=== PATIENT | male | born 1990 | race Caucasian/White ===

== ENCOUNTER 2018-05-08 18:49 | Emergency (ER) | payer OTHER ==
[~2018-05-08] VITALS: Ht 165.1 cm; Wt 105.2 kg
[2018-05-08 19:06] VITALS: Ht 165.1 cm; Wt 105.2 kg
[2018-05-08 20:36] VITALS: BP 125/78
== END 2018-05-08 20:36 | disposition home or self-care (01) ==
LOC: ED 18:49
DX: J03.90 Acute tonsillitis, unspecified (principal); J06.9 Acute upper respiratory infection, unspecified; H10.33 Unspecified acute conjunctivitis, bilateral

== ENCOUNTER → 2018-10-20 | Emergency (ER) | payer OTHER ==
[~2018-10-20] VITALS: Ht 160 cm; Wt 107.5 kg
[2018-10-20 09:58] VITALS: BP 145/91; Ht 160 cm; Wt 107.5 kg
== END ==
LOC: ED 09:48
DX: H10.31 Unspecified acute conjunctivitis, right eye (principal)
CPT/HCPCS: J7030